=== PATIENT | female | born 1980 | race Caucasian/White ===

== ENCOUNTER 2023-06-28 13:58 | Emergency (ER) | payer OTHER ==
[2023-06-28 14:13] VITALS: BP 166/85; PULSE 93; RESP 18; TEMP 98.6; BMI 32.0
[2023-06-28] MEDS ORDERED: LIDOCAINE 4% PATCH TP ONE (16:21)
[2023-06-28] MEDS ORDERED: KETOROLAC TROMETHAMINE 30 MG/1 ML VIAL ONE (16:21)
[2023-06-28] MEDS: LIDOCAINE 4% PATCH TP ONE (16:27)
[2023-06-28] MEDS: KETOROLAC TROMETHAMINE 30 MG/1 ML VIAL IM ONE (16:27)
[2023-06-28] MEDS ORDERED: LIDOCAINE PATCH REMOVAL MC ONE (22:00)
== END 2023-06-28 17:49 | disposition home or self-care (01) ==
LOC: JERFT 13:58
PROC: 3E0233Z Introduction of Anti-inflammatory into Muscle, Percutaneous Approach (ICD-10-PCS; principal; 2023-06-28)
DX: M25.512 Pain in left shoulder (principal); M54.50 Low back pain, unspecified; S46.812A Strain of other muscles, fascia and tendons at shoulder and upper arm level, left arm, initial encounter; V49.50XA Passenger injured in collision with unspecified motor vehicles in traffic accident, initial encounter; Y92.410 Unspecified street and highway as the place of occurrence of the external cause
CPT/HCPCS: 99284-25